=== PATIENT | female | born 1945 | race Caucasian/White ===

== ENCOUNTER 2019-05-15 12:38 | Observation (INO) ==
[2019-05-15] MEDS ORDERED: ONDANSETRON 4 MG/2 ML VIAL IV PRN (16:27)
[2019-05-15] MEDS ORDERED: ACETAMINOPHEN 325 MG TABLET PO PRN (16:27)
[2019-05-15] MEDS ORDERED: diphenhydrAMINE CAP 25 MG CAPSULE PO PRN (17:01)
[2019-05-15] MEDS ORDERED: ZALEPLON 5 MG CAPSULE PO PRN (17:01)
[2019-05-15] MEDS ORDERED: MOISTURIZING CREAM (EUCERIN) 106 GM JAR TOP PRN (17:03)
[2019-05-15] MEDS ORDERED: hydrALAZINE 20 MG/1 ML VIAL IV PRN (17:05)
[2019-05-15 17:17] LABS: VLDL CHOLESTEROL 13.6 MG/DL
[2019-05-15] MEDS ORDERED: DEXTROSE 50% 25 GM/50 ML VIAL IV PRN (18:01)
[2019-05-15] MEDS ORDERED: GLUCAGON 1 MG VIAL IM PRN (18:01)
[2019-05-15] MEDS: cefTRIAXone 1,000 MG in SYRINGE 1 EACH IV SCH (18:15)
[2019-05-15] MEDS: metFORMIN 500 MG TABLET PO SCH (18:28)
[2019-05-15] MEDS: IPRATROPIUM 500 MCG/2.5 ML NEB RESP TX SCH (19:54)
[2019-05-15] MEDS: CARVEDILOL 12.5 MG TABLET PO SCH (20:57)
[2019-05-15] MEDS: DOCUSATE SODIUM 100 MG CAPSULE PO SCH (20:57)
[2019-05-15] MEDS: APIXABAN 5 MG TABLET PO SCH (20:57)
[2019-05-15] MEDS: CILOSTAZOL 50 MG TABLET PO SCH (20:57)
[2019-05-15] MEDS: INSULIN REGULAR 100 UNIT/ML SUBCUT SCH (20:58)
[2019-05-15] MEDS ORDERED: OXYBUTYNIN XL 10 MG TABLET PO SCH (21:00)
[2019-05-15] MEDS ORDERED: ATORVASTATIN 10 MG TABLET PO SCH (21:00)
[2019-05-15] MEDS: FLUTICASONE/SALMETEROL 500-50 DISKUS 14 DOSE INH SCH (21:04)
[2019-05-15 21:49] LABS: Apearance,Urine CLOUDY (Clear); Bilirubin,Urine Negative (Negative); Blood, Urine Negative (Negative); Glucose,Urine (UA) >=500 mg/dL (Negative); Ketones,Urine Negative (Negative); Nitrite,Urine Negative (Negative); Protein,Urine Negative; RBC,Urine 67 /HPF (0-4); Squamous Epithelial Cell,Urine Occasional /HPF (0-10); Urine Color Yellow (Yellow); Urine Specific Gravity 1.028 (1.001-1.035); Urine Urobilinogen < 2.0 EU/DL (0.2-1.0); WBC,Urine 533 /HPF (0-6)
[2019-05-16] MEDS: IPRATROPIUM 500 MCG/2.5 ML NEB RESP TX SCH ×2 (01:09→07:16)
[2019-05-16] MEDS: cefTRIAXone 1,000 MG in SYRINGE 1 EACH IV SCH (04:55)
[2019-05-16 05:21] LABS: Basophils # 0.1 10*3/uL (0.0-0.2); Basophils % 0.9 % (0.0-0.8); Eosinophils # 0.2 10*3/uL (0.0-0.87); Eosinophils % 3.1 % (0.00-10.9); Hematocrit 38.7 VOL% (35.7-47.0); Hemoglobin 12.7 GM/DL (12.0-16.0); Immature Granulocytes % 0.6 %; Immature Granulocytes Absolute 0.04 #; Lymphocytes # 1.3 10*3/uL (1.4-4.0); Mean Corpuscular HGB Conc 32.8 GM/DL (32-36); Mean Corpuscular Volume 90.8 FL (87-102); Mean Platelet Volume 10.1 FL (9.6-12.0); Monocytes % 8.8 % (1.7-12.7); Neutrophils % 66.6 % (38.7-73.9); Platelet Count 188 T/CUMM (130-400); Red Blood Count 4.26 MC/CUMM (3.8-5.5); Red Cell Distribution Width 12.7 % (9.3-17.3); White Blood Count 6.7 T/CUMM (4-12)
[2019-05-16 05:44] LABS: Albumin 3.3 G/DL (3.4-5.0); Bilirubin,Total 0.6 MG/DL (0.2-1.0); Calcium 9.2 MG/DL (8.5-10.1); Total Protein 6.3 G/DL (6.4-8.3)
[2019-05-16] MEDS ORDERED: MAGNESIUM SULF RIDER 2 GM in PREMIX 1 EACH IV ONE (06:00)
[2019-05-16] MEDS ORDERED: MAGNESIUM SULF RIDER 2 GM in PREMIX 1 EACH IV PRN ×2 (06:08→06:13)
[2019-05-16] MEDS ORDERED: MAGNESIUM SULF RIDER 4 GM in PREMIX 1 EACH IV PRN (06:13)
[2019-05-16] MEDS: metFORMIN 500 MG TABLET PO SCH (08:26)
[2019-05-16] MEDS: CARVEDILOL 12.5 MG TABLET PO SCH (08:26)
[2019-05-16] MEDS: DOCUSATE SODIUM 100 MG CAPSULE PO SCH (08:26)
[2019-05-16] MEDS: INSULIN REGULAR 100 UNIT/ML SUBCUT SCH ×2 (08:27→12:56)
[2019-05-16] MEDS: CILOSTAZOL 50 MG TABLET PO SCH (08:27)
[2019-05-16] MEDS: APIXABAN 5 MG TABLET PO SCH (08:27)
[2019-05-16] MEDS: FLUTICASONE/SALMETEROL 500-50 DISKUS 14 DOSE INH SCH (08:29)
[2019-05-16] MEDS ORDERED: PANTOPRAZOLE 40 MG TABLET PO SCH (09:00)
[2019-05-16] MEDS ORDERED: NITROGLYCERIN 0.2 MG/HR PATCH TRANSDERM SCH (09:00)
[2019-05-16] MEDS ORDERED: MELOXICAM 7.5 MG TABLET PO SCH (09:00)
[2019-05-16 11:43] VITALS: BP 109/56
== END 2019-05-16 13:30 | disposition home or self-care (01) ==
LOC: N.5E → SUATTDRO 15:32
PROVIDERS: ADMIT Internal Medicine; ATTEND Hospitalist